=== PATIENT | male | born 1965 | race Caucasian/White ===

== ENCOUNTER → 2024-09-25 | Outpatient (CLI) | payer OTHER ==
--- NOTE | 2024-09-25 16:42 | HMCIMG ---
MR SPINAL CANAL, LUMBAR WO CON REASON: M54.30 Sciatica, unspecified side COMPARISON: None TECHNIQUE: Routine lumbar spine evaluation was acquired in the sagittal and axial plane with T1, proton density, T2 and gradient recalled sequences. Coronal images were generated as well. FINDINGS: There are normal appearing vertebral bodies. There are no focal osseous lesions. There is annular bulging at multiple levels. Overall disc interspace heights appear preserved. Axial images show moderate ligamentum flavum and facet hypertrophic changes. L5-S1 is widely patent. There is diffuse midline annular bulging at L4-5. This includes junction with the facet hypertrophy results in a moderate component of spinal stenosis, AP diameter between 7 and 8 mm. In addition there is a synovial cyst extending medially from the L4-5 facet. This causes marked narrowing of the left lateral recess and mild compression of the left side of the thecal sac. The synovial cyst measures 4 x 9 m. AP diameter at L3-4 6.8 and 9 mm consistent with mild narrowing. Remaining interspaces are widely patent. There is no evidence of a discrete focal disc herniation. Neural foramina appear preserved. IMPRESSION: 1. Mild to moderate spinal stenosis at L4-5 on a degenerative basis 2. There is also a 4 x 9 mm synovial cyst extending anteriorly and medially from the left L4-5 facet, this causes narrowing of the left lateral recess and mild deformity of the left side of the thecal sac, accentuating the mild to moderate stenosis. 3. Otherwise unremarkable exam, no discrete focal disc herniation, neural foramina appear preserved.
== END | disposition home or self-care (01) ==
LOC: RAH 15:23
PROVIDERS: ATTEND Family Medicine
DX: M51.16 Intervertebral disc disorders with radiculopathy, lumbar region (principal); M48.061 Spinal stenosis, lumbar region without neurogenic claudication; M71.38 Other bursal cyst, other site
CPT/HCPCS: 72148